=== PATIENT | female | born 1955 | race Caucasian/White ===

== ENCOUNTER 2021-11-13 13:45 | Outpatient (CLI) | payer MEDICARE, BC, SELFPAY ==
--- NOTE | ~2021-11-13 | XR_ITS ---
XR lumbar spine 2-3V DATE: 11/13/2021 14:10 INDICATION: Low back pain for 6 months. No injury. TECHNIQUE: AP, lateral, coned lateral lumbosacral views COMPARISON: None FINDINGS: Osteopenia. No scoliosis of the lumbar spine. Normal alignment of the lumbar spine with the exception of mild anterolisthesis at L2 L3-4 and L4-5 due to prominent degenerative change noted at the mid and lower lumbar and lumbosacral area. Moderate degenerative disc disease is noted at L1-2, L2-3, L3-4. Mild degenerative disc disease at L4 -5. L5-S1 interspace is well preserved. No fracture or bone destruction is detected. Included lower thoracic and lumbar pedicles are intact. The sacroiliac joints are unremarkable. IMPRESSION: Degenerative change at the mid and lower lumbar and lumbosacral apophyseal joints with as sociated grade 1 anterolisthesis at L3-4 and L4-5 Moderate degenerative disc disease at L1-2, L2-3, L3-4 and mild degenerative disc disease at L4-5 Osteopenia Status post cholecystectomy Reviewed, dictated and finalized at location A. IMPRESSION: Degenerative change at the mid and lower lumbar and lumbosacral apo physeal joints with associated grade 1 anterolisthesis at L3-4 and L4-5 Moderate degenerative disc disease at L1-2, L2-3, L3-4 and mild degenerative di sc disease at L4-5 Osteopenia Status post cholecystectomy
== END 2021-11-13 13:46 | disposition home or self-care (01) ==
PROVIDERS: PCP Family Medicine; Visit Provider Family Medicine
DX: M51.36 Other intervertebral disc degeneration, lumbar region (principal); Z90.49 Acquired absence of other specified parts of digestive tract; M85.88 Other specified disorders of bone density and structure, other site
CPT/HCPCS: 72100

== ENCOUNTER 2022-03-25 09:00 | Outpatient (RCR) | payer MEDICARE, BC, SELFPAY ==
--- NOTE | 2022-02-03 16:51 | PTOPEVAL1 ---
Assessment and note entered by Leslie Herrera, PT Evaluation Information Assessment Status Evaluation Diagnosis Back Pain, radiculopathy Onset 05/2021 Subjective Information Back hurts sometimes with pain in LEFT buttock and down the back of the left leg down to calf. Sometimes RIGHT buttock and down to knee Reported Pain Level Pain Score 0,2: Self Report Assessment PT Clinical Summary Pt presents w/ c/o pain in back, buttocks, and BLE L>R at times. Reports she had been seeing chiropractic consistently until January and began to have pain return thus ceased day care provider and presented to MD. Physical therapy evaluation shows sacral torsion, corresponding mm tone in left piriformis, decreased hamstring, quad , and piriformis length, decreased lumbopelvic stability, poor core strength and stability especially in the transverse abdominal musculature . Pt would thus benefit from therapy to address lumbopelvic alignment and stability, muscle tonicity, tissue extensibility and flexibility, and strength/stabilization in order to reduce pain and return to prior level of function without pain. Plan of Care Interventions Electrical Stimulation,Hot Pack/Cold Pack,Manual Therapy,Therapeutic Activities,Therapeutic Exercise,Self-Care/Home Management,Ultrasound PT Services Indicated Yes Treatment Frequency and 2x weekly x 4 weeks Duration These treatments will address the objective and functional deficits as defined above. The patient will be advanced safely and appropriately in order for the patient to progress towards his/her prior level of function. Additional exercises will be introduced and as well as a comprehensive home exercise program upon discharge, if needed, ?to ensure carryover of functional gains achieved in the clinic. This treatment plan has been reviewed and agreement upon by the patient.
--- NOTE | 2022-03-03 11:54 | PTOPPROG ---
Assessment and note entered by Lisa Landers, PT Evaluation Information Assessment Status progress report Diagnosis Back Pain, radiculopathy Onset 05/2021 Subjective Information Radha reports: back is better, 0-4/10 range;R leg not hurting anymore and L calf sore; doing the exercises at home, just an exercise ball for home use; walk 10-15 min & stand 15 min- pain increase Assessment PT Clinical Summary Radha has received 6 PT sessions. Compared to the initial evaluation: pain has decreased at worst rating from 10 to 4/10; No longer has R LE pain and L radicular pain is less; continues to have increase back pain with valsalva during bowel movements; increased strength and flexibility of hips and trunk; in supine, does not have any increase in pain with R and L hip motions or hamstring stretching; She reports walking and standing tolerances are decreased due to pain. She has been educated on a home exercise program, posture/body positioning and techniques to help manage her pain. The goals were partially achieved. Continue PT treatment to further increase her flexibility and strength, with progression of her home exercises. Plan of Care Interventions Hot Pack/Cold Pack,Manual Therapy,Mechanical Traction,Patient/Caregiver Education,Therapeutic Activities,Therapeutic Exercise,Ultrasound PT Services Indicated Yes Treatment Frequency and 2x/wk for 3 weeks Duration These treatments will address the objective and functional deficits as defined above. The patient will be advanced safely and appropriately in order for the patient to progress towards his/her prior level of function. Additional exercises will be introduced and as well as a comprehensive home exercise program upon discharge, if needed, ?to ensure carryover of functional gains achieved in the clinic. This treatment plan has been reviewed and agreement upon by the patient.
--- NOTE | 2022-03-25 09:50 | PTOPDC ---
Assessment and note entered by Lisa Landers, PT Evaluation Information Assessment Status Discharge Diagnosis Back Pain, radiculopathy Onset 05/2021 Subjective Information Radha reports: was feeling a little better and did more yesterday around the house--laundry, cleaning, changing bed; back is OK today, hamstring is sore; is doing her exercises at home and stretching every day; has an exercise ball; ready for discharge from PT; PAIN: range of 0-4/10; increase with more activity; sit 30-60 min and then go to stand up, but loosens in 5 min of being up and walking; standing/walking tolerance of 30 min; decrease pain with sit/rest, tylenol ~ 2x/day; using ice and home stim unit; Reported Pain Level Pain Score Self Report, 0-4/10 range L hamstring Assessment PT Clinical Summary Radha has received 10 PT sessions: Compared to the last reevaluation: pain rating is the same at 0-4/10 with reported increased activity, walking and standing tolerances, with decreased use of tylenol from 6 to 2 per day; increased trunk and hip strength; increased flexibility of B hamstring and quad muscle length; She is independent with her home exercise program. The goals were partially achieved. Discharge PT services; Plan of Care PT Services Indicated No
== END 2022-03-27 07:35 | disposition home or self-care (01) ==
LOC: ANHPT 09:00
PROVIDERS: PCP Family Medicine; Visit Provider Family Medicine
DX: M54.16 Radiculopathy, lumbar region (principal)
CPT/HCPCS: 97014; 97110; 97112; 97140; 97161; 97530; G0283

== ENCOUNTER 2022-04-15 07:46 | Outpatient (CLI) | payer MEDICARE, BC, SELFPAY ==
--- NOTE | ~2022-04-15 | MR_ITS ---
MRI of the lumbar spine Clinical History: Radiculopathy Technique: Axial T2-weighted images, and sagittal T1-weighted, T2-weighted, T2 fat sat, and STIR imag es were acquired. Findings: There is no fracture or subluxation of the lumbar spine. Vertebral bodies maintain normal h eight and alignment. No focal bone marrow signal abnormality identified. At L1-L2, there is no disc bulge herniation. There is minimal facet joint arthropathy. No spinal rosaura l stenosis or neural foraminal narrowing. At L2-L3, there is no disc bulge or herniation. There is mild facet arthropathy. No spinal canal sten osis or neural foraminal narrowing. At L3-L4, there is minimal bulge in the foraminal regions, with moderate to severe facet arthropathy. There is resultant severe thecal sac compression focally. Bilateral neural foramina are preserved. At L4-L5, disc bulge and facet arthropathy contribute to severe thecal sac compression focally. Bilat eral neural foramina are preserved. At L5-S1, there is no disc bulge or herniation. There is facet joint arthropathy. No spinal canal kyle nosis or neural foraminal narrowing. Paravertebral soft tissues are unremarkable. Impression: Severe thecal sac compression at the L3-L4 and L4-L5 levels, largely related to facet joint arthropat hy as well as superimposed disc bulges. Reviewed, dictated and finalized at location [] OPERATOR Impression: Severe thecal sac compression at the L3-L4 and L4-L5 levels, largely related to facet joint arthropathy as well as superimposed disc bulges.
== END 2022-04-15 07:47 | disposition home or self-care (01) ==
PROVIDERS: PCP Physician Assistant Medical; Visit Provider Physician Assistant Medical
DX: M54.16 Radiculopathy, lumbar region (principal)
CPT/HCPCS: 72148

== ENCOUNTER 2022-07-30 08:29 | Outpatient (CLI) | payer MEDICARE, BC, SELFPAY ==
--- NOTE | 2022-07-30 09:19 | ECG_ITS ---
Measurements Intervals [place] Rate: 82 P: 5 IL: 159 QRS: 3 QRSD: 86 T: 51 QT: 344 QTc: 403 Interpretive Statements SINUS RHYTHM MINIMAL Q WAVES- INFERIOR LEADS BORDERLINE ECG NO PREVIOUS ECG AVAILABLE FOR COMPARISON Electronically Signed On 07-30-2022 9:47:13 CDT by Hany Angulo D.O.
[2022-07-30 09:41] LABS: Basophils Absolute Auto 0.1 K/mm3 (0.0-0.1); Basophils Percent Auto 0.8 % (0.2-1.2); Eosinophils Absolute Auto 0.4 K/mm3 (0-0.3); Eosinophils Percent Auto 3.8 % (0-4.4); Hematocrit 46.2 % (37.0-47.0); Hemoglobin 14.9 g/dL (12.0-15.0); Immature Granulocyte Absolute 0.04 K/mm3 (0.00-0.031); Immature Granulocyte Percent A 0.4 % (0-0.5); Lymphocytes Absolute Auto 2.33 K/mm3 (0.9-3.2); Mean Corpuscular HGB Conc 32.3 g/dl (32-36); Mean Corpuscular Hemoglobin 29.7 pg (26-34); Mean Platelet Volume 10.9 fl (7.4-10.4); Monocytes Absolute Auto 0.9 K/mm3 (0.1-0.6); Monocytes Percent Auto 8.9 % (2.6-8.5); Neutrophils Absolute Auto 6.8 K/mm3 (1.3-6.7); Neutrophils Percent Auto 64.1 % (45.5-73.1); Platelet Count Result 269 k/mm3 (150-375); Red Blood Count 5.02 M/mm3 (4.2-5.4); Red Cell Distribution Width 12.7 % (11.5-14.5); White Blood Count 10.6 K/mm3 (4.5-10.0)
[2022-07-30 09:46] LABS: Anion Gap 6 mmol/L (8-16); Blood Urea Nitrogen 17 mg/dL (7-17); Calcium 9.5 mg/dL (8.4-10.2); Carbon Dioxide 33 mmol/L (22-30); Chloride 101 mmol/L (98-107); Estimated Glomerular Filt Rate > 60; Glucose 97 mg/dL (65-110); Potassium 3.9 mmol/L (3.4-5.0); Sodium 140 mmol/L (137-145)
[2022-07-30 10:42] LABS: Appearance Urine Cloudy (Clear); Bacteria Urine None Seen /hpf; Bilirubin Urine Negative (Negative); Blood Urine Trace (Negative); Color Urine Yellow (Yellow); Glucose Urine UA Negative (Negative); Ketones Urine Negative (Negative); Leukocyte Esterase Ur 2+ LEU/UL (Negative); Need Manual Microscopic Reviewed; Nitrate Urine Negative (Negative); Non Pathogenic Casts 0-2; Protein Urine Negative (Negative); RBC Urine 51-100 /hpf (0-2); Squamous Epithelial Cell Urine None seen /hpf (Few); Urobilinogen Urine 0.2 mg/dL (<2.0); WBC Urine 21-50 /hpf; pH Urine 5.5 (5.0-9.0)
[2022-07-30 11:50] LABS: Add Urine Microscopic? YES
== END 2022-07-30 08:30 | disposition home or self-care (01) ==
PROVIDERS: PCP Nurse Practitioner Family; Visit Provider Neurological Surgery
DX: M48.062 Spinal stenosis, lumbar region with neurogenic claudication (principal); Z01.818 Encounter for other preprocedural examination; M47.26 Other spondylosis with radiculopathy, lumbar region
CPT/HCPCS: 36415; 80048; 81001; 85025; 86850; 86900; 86901; 87086; 93005

== ENCOUNTER 2022-08-10 13:21 | Outpatient (CLI) | payer MEDICARE, BC, SELFPAY ==
[2022-08-10 14:12] LABS: White Blood Count 11.6 K/mm3 (4.5-10.0)
[2022-08-10 14:25] LABS: Partial Thromboplastin Time 29.6 SECONDS (22.3-36.8)
== END 2022-08-10 13:22 | disposition home or self-care (01) ==
LOC: ANHSURGERY 13:28
PROVIDERS: PCP Physician Assistant Medical; Visit Provider Neurological Surgery
DX: M48.062 Spinal stenosis, lumbar region with neurogenic claudication (principal)
CPT/HCPCS: 36415; 85048; 85610; 85730; 86850; 86900; 86901

== ENCOUNTER 2022-08-13 00:28 | Day surgery (SDC) | payer MEDICARE, BC, SELFPAY ==
--- NOTE | 2022-08-07 13:52 | PC.NURSE ---
Report to the Outpatient Waiting Room, entrance under the green pavilion located off [facility], at time __0600 on date _08/13/22 . Planned Procedure Time: __0730 . Time changes happen often and if your time is changed the preop area will call you the afternoon before. - You and your visitor will be asked to self-screen and do not enter if you have any COVID symptoms. - A mask is optional within the hospital at this time. Patients may have clear liquids (water, carbonated beverages, clear teas, apple juice) until 3 hours prior to surgery with a maximum of 20 ounces. - No food from midnight until time of surgery - Infants may have breast milk until 4 hours before surgery, infant formula 6 hours prior to surgery. - Children will be allowed to drink immediately following surgery. If applicable, please bring a bottle or sippy cup to assist with drinking. Juice, water, soda, and popsicles are readily available. For infants on formula, please bring formula the day of surgery. Pacifiers are allowed. Take the following medications with a SIP of water the morning of surgery: ___AMLODIPINE,INHALER DO NOT STOP ANY OF YOUR OTHER PRESCRIPTION MEDICATIONS PRIOR TO SURGERY ?EXCEPT THE FOLLOWING Medications to discontinue per physician ____ALL VITAMINS/SUPPLEMENTS 3 DAYS PRE OP .LAST DOSE 08/09/22 Please no make-up, nail urdu, hairspray, perfume, deodorant, or body powder the day of surgery. No jewelry (including any body piercings) or valuables the day of surgery, leave them at home. Please take a shower or bath the night before, or the morning of, surgery with an antibacterial soap. Wear comfortable, loose fitting clothing. Children are encouraged to wear pajamas. - Jewelry must be removed prior to entering the operating room. Rings and piercings that are not removed may be cut off. - The hospital will not accept responsibility for valuables. - Please leave all valuables, including medications, at home the day of surgery. If you are going home after surgery, a licensed m48/m60 tank driver must drive you home. - NO public transportation without another adult if you receive anesthesia. - We recommend that an adult stay with you for 24 hours following discharge. - We also recommend that you do not drive, make important decision, drink alcoholic beverages, or take any drugs that were not prescribed by your health care provider for at least 24 hours after your discharge time. For Pediatric surgeries, we recommend two adults accompany the child home. Follow any additional instructions given to you from your surgeon. If you or anyone in your household have experienced Covid symptoms in the past week, please notify your surgeon or the nurse liaison at the phone number below for possible testing. Telephone instructions given to ___PATIENT and asked if any additional questions and then verbalized understanding. Patient advised to call surgeon office or pre surgery nurse liaison [phone] if any additional questions.
[2022-08-07 14:04] VITALS: BMI 42.3
[2022-08-13] VITALS (9 sets, daily range): BP systolic 126–152; BP diastolic 55–94; PULSE 71–88; RESP 10–16; TEMP 36.6–37.1; O2SAT 92–100
--- NOTE | ~2022-08-13 | XR_ITS ---
EXAMINATION: XR fluoroscopy no charge DATE: 08/13/2022 13:40 INDICATION: Lumbar spondylosis. TECHNIQUE: A single lateral intraoperative fluoroscopic view of the lumbar spine was obtained. I was not present. Fluoroscopy exposure time was 3 seconds. COMPARISON: None. FINDINGS: There is an instrument overlying the posterior elements at L3-L4. IMPRESSION: 1. Instrument overlying the posterior elements at L3-L4. Reviewed, dictated and finalized at location A.
[2022-08-13] MEDS: LACTATED RINGERS 1,000 ML 30 ML IV CONT ×2 (06:30→09:45)
--- NOTE | 2022-08-13 06:48 | WPDANESEPPF ---
Anes - Initial Pre Proc Eval Procedure: Operation Date: 08/13/22 07:30 Proposed Procedures p Left Hemilaminectomy L3-4, L4-5 - Jag Canseco MD Date/Time: 08/13/22 06:48 Surgeon: Jag Canseco MD Pre Op Diagnosis: L3-4,L4-5 stenosis Patient Data Age: 66 Gender: F Height: 1.68 m Weight: 120.8 kg Allergies Allergy/AdvReac Type Severity Reaction Status Date / Time hydrochlorothiazide AdvReac Intermediate body aches Verified 08/07/22 13:35 Home Medications Medication Instructions Recorded Confirmed Type ascorbic acid (vitamin C) 500 mg 500 mg PO DAILY 05/02/19 08/07/22 History capsule calcium carbonate 600 mg-vitamin 1 tablet PO DAILY 05/02/19 08/07/22 History D3 5 mcg (200 unit) tablet (Calcium 600 + D(3)) cholecalciferol (vitamin D3) 50 2,000 unit PO DAILY 05/02/19 08/07/22 History mcg (2,000 unit) tablet flaxseed oil 1,000 mg capsule 1,000 mg PO DAILY 05/02/19 08/07/22 History zinc 50 mg tablet (Chelated Zinc) 30 mg PO DAILY 05/02/19 08/07/22 History valacyclovir 1 gram tablet 2,000 mg PO Q12H PRN fever blister 02/14/20 08/07/22 Rx (Valtrex) #30 tabs naproxen sodium 220 mg tablet See Rx Instructions PO BID PRN Pain 04/01/22 08/07/22 History (Aleve) fluticasone 250 mcg-salmeterol 50 See Rx Instructions .Route 04/20/22 08/07/22 Rx mcg/dose blistr powdr for .COMPLEX #180 grams inhalation (Wixela Inhub) amlodipine 5 mg tablet See Rx Instructions .Route 06/25/22 08/07/22 Rx .COMPLEX #90 tabs semaglutide 0.25 mg or 0.5 mg (2 0.25 mg (0.4 mL) subcut WEEKLY #3 06/25/22 08/07/22 Rx mg/3 mL) subcutaneous pen injector mL (Ozempic) telmisartan 80 mg tablet 80 mg PO DAILY #90 tabs 06/25/22 08/07/22 Rx metformin 500 mg tablet See Rx Instructions PO .COMPLEX 07/17/22 08/07/22 Rx #360 tabs Patient hx anesthesia problems: none Family hx anesthesia problems: none Results Review: All pre-operative results and documents have been reviewed as part of the pre-operative evaluation. [facility] Past Medical History Medical History DJD of left shoulder Essential hypertension Obesity Pain, joint, shoulder, left Postmenopausal Thumb tendonitis Type 2 diabetes mellitus without complication, without long-term current use of insulin Surgical History Surgical History H/O breast biopsy History of cholecystectomy Family History Family History (Updated 07/17/22 @ 14:09 by Ama Caicedo PA-C) Father Hypertension Mother Hypertension Sibling Endometrial cancer Other Family history of arthritis Family history of malignant neoplasm Social History Social History Smoking packs per day: 0.5 Smoking cigarettes per day: 10.0 Years smoked: 10 Smoking pack-years: 5.00 Smoking status: Former smoker Tobacco type: cigarettes Second hand tobacco smoke exposure: Yes Smoking end date: 05/03/84 Alcohol intake: never Substance use: never Substance use type: does not use Lack of Transportation: No Lack of Food: Never True Current Housing: I Have Housing Concerned About Future Housing: No Difficulty Paying Gas/Electric Bills: No Difficulty Paying for Meds: No Currently Unemployed: No Difficulty w/ Childcare or Family Care: No Living arrangements: with family Occupation/Education: retired Gender identity (if verbalized by the patient): Female Spiritual care concerns: No Agree to blood products: Yes Anes - Eval Final PreProcedure Day of Procedure 08/13/22 06:48 Patient weight: morbidly obese Heart: regular rate and rhythm Lungs: clear to auscultation Airway: Mallampati scale class II Neurological: alert and oriented Last oral intake: >/= 8 hours ASA classification: III Emergent: no Anesthetic plan: proceed Anesthesia type and monitoring: general ETT and
[2022-08-13 06:51] LABS: Glucose Point of Care 106 mg/dl (65-105)
--- NOTE | 2022-08-13 07:39 | PM.IMHP ---
H&P: HPI History of Present Illness Date/Time: 08/13/22 07:39 Chief Complaint: Back and leg pain, claudication Narrative: Alicia is a 66-year-old female with back and leg pain related stenosis at L3-5 presents for left-sided L3-5 hemilaminectomy. She has not changed appreciably since we last saw her. She is not having specific muscle group weakness or dermatomal numbness. She is not having bowel or bladder difficulty. Review of Systems Review of Systems: Patient denies shortness of breath, cough, fever, chills, nausea, vomiting, weight loss, weight gain, chest pain, dysuria. She has back and leg pain as above. Her review of systems is otherwise negative on 12 systems except as noted elsewhere. [facility] Past Medical History Medical History DJD of left shoulder Essential hypertension Obesity Pain, joint, shoulder, left Postmenopausal Thumb tendonitis Type 2 diabetes mellitus without complication, without long-term current use of insulin Surgical History Surgical History H/O breast biopsy History of cholecystectomy Family History Family History (Updated 07/17/22 @ 14:09 by Ama Caicedo PA-C) Father Hypertension Mother Hypertension Sibling Endometrial cancer Other Family history of arthritis Family history of malignant neoplasm Social History Social History Smoking packs per day: 0.5 Smoking cigarettes per day: 10.0 Years smoked: 10 Smoking pack-years: 5.00 Smoking status: Former smoker Tobacco type: cigarettes Second hand tobacco smoke exposure: Yes Smoking end date: 05/03/84 Alcohol intake: never Substance use: never Substance use type: does not use Lack of Transportation: No Lack of Food: Never True Current Housing: I Have Housing Concerned About Future Housing: No Difficulty Paying Gas/Electric Bills: No Difficulty Paying for Meds: No Currently Unemployed: No Difficulty w/ Childcare or Family Care: No Living arrangements: with family Occupation/Education: retired Gender identity (if verbalized by the patient): Female Spiritual care concerns: No Agree to blood products: Yes Meds Home Medications and Allergies Home Medications Medication Instructions Recorded Confirmed Type ascorbic acid (vitamin C) 500 mg 500 mg PO DAILY 05/02/19 08/07/22 History capsule calcium carbonate 600 mg-vitamin 1 tablet PO DAILY 05/02/19 08/07/22 History D3 5 mcg (200 unit) tablet (Calcium 600 + D(3)) cholecalciferol (vitamin D3) 50 2,000 unit PO DAILY 05/02/19 08/07/22 History mcg (2,000 unit) tablet flaxseed oil 1,000 mg capsule 1,000 mg PO DAILY 05/02/19 08/07/22 History zinc 50 mg tablet (Chelated Zinc) 30 mg PO DAILY 05/02/19 08/07/22 History valacyclovir 1 gram tablet 2,000 mg PO Q12H PRN fever blister 02/14/20 08/07/22 Rx (Valtrex) #30 tabs naproxen sodium 220 mg tablet See Rx Instructions PO BID PRN Pain 04/01/22 08/07/22 History (Aleve) fluticasone 250 mcg-salmeterol 50 See Rx Instructions .Route 04/20/22 08/07/22 Rx mcg/dose blistr powdr for .COMPLEX #180 grams inhalation (Wixela Inhub) amlodipine 5 mg tablet See Rx Instructions .Route 06/25/22 08/07/22 Rx .COMPLEX #90 tabs semaglutide 0.25 mg or 0.5 mg (2 0.25 mg (0.4 mL) subcut WEEKLY #3 06/25/22 08/07/22 Rx mg/3 mL) subcutaneous pen injector mL (Ozempic) telmisartan 80 mg tablet 80 mg PO DAILY #90 tabs 06/25/22 08/07/22 Rx metformin 500 mg tablet See Rx Instructions PO .COMPLEX 07/17/22 08/07/22 Rx #360 tabs Allergies Allergy/AdvReac Type Severity Reaction Status Date / Time hydrochlorothiazide AdvReac Intermediate body aches Verified 08/07/22 13:35 Exam Narrative: Strength is 5/5 in all muscle groups of the bilateral lower extremities. Sensation is intact to light touch throu
--- NOTE | 2022-08-13 07:41 | WPDHPUPDATE1 ---
History and Physical Update Update Date/Time: 08/13/22 07:41 History and Physical has been reviewed, including an updated exam of the patient. There are NO changes in the patient's condition. Risks, benefits, and alternatives have been discussed and questions answered. Patient agrees to proceed with procedure.
[2022-08-13] MEDS: ceFAZolin 3 GM/D5W 100 ML 100 ML IVPB (07:52)
[2022-08-13] MEDS: LIDO 1%/EPINEPHRINE 1:100,000 50 ML VIAL INFILTRATE (08:36)
--- NOTE | 2022-08-13 09:29 | W.PM.PROC2 ---
Procedure Note - Detailed Date of Procedure 08/13/22 Pre-op Diagnosis L3-4,L4-5 stenosis Post-op Diagnosis Same Procedure Performed Left L3-4 and L4-5 hemilaminectomy Surgeon Jag Canseco MD Staff Electronic Warfare Officer Caroline Anesthesia General Description of Procedure The patient was brought to the operating room in the supine position, was sedated, intubated and placed under general anesthesia in routine fashion. She was then turned into the prone position on a Kishore frame. The area of operation on her back was examined, marked for incision, prepped and draped in routine sterile fashion. Incision was marked over the L3 through L5 spinous processes in the midline. This area was injected with 0.5% lidocaine with [id number] epinephrine. Intravenous antibiotics given prior to incision. Incision was made with a 10 blade scalpel down to the lumbodorsal fascia. A subperiosteal dissection of the muscle and soft tissue within spinous process and lamina at L3-5 on the left was performed with a subperiosteal elevator and Bovie cautery. A verifying x-rays obtained to verify the level of operation. At the L3-5 levels a Midas [place] drill was used to perform a hemilaminectomy and medial facetectomy. Under microscopy the yellow ligament was lifted in the midline removed piecemeal using Kerrison punches. Curved curette was used to define a plane with the dura and scraped free and remove overgrown bone and ligament in the lateral recess 1st episode laterally and then contralaterally. Kerrison punches were used to remove this material. This was done until a Lockhart instrument could be placed in the lateral recess to confirm microdecompression bilaterally. The wound was then copiously irrigated with bacitracin irrigation all bleeding stopped with bipolar and Bovie cautery and Gelfoam thrombin powder. The wound was then closed in layered fashion with 2-0 Vicryl interrupted sutures in the lumbodorsal fascia and Juanita's layer. 3-0 Vicryl buried interrupted sutures were placed in the dermis and skin was closed with a running 4-0 Monocryl subcuticular stitch and dressed with Dermabond and a Telfa and Tegaderm dressing. The patient was allowed to wake up in the operating room and was taken to the recovery room in stable condition. There were no immediate complications of this operation. All counts were reported correct at the end of the case. Blood loss was 50 cc. The patient was neurologically at her baseline postoperatively. CPT codes: 02624, 85430, 66676 Estimated Blood Loss 50 IV Fluids 1,000 Complications None Condition Stable Disposition PACU [facility] Billing Surgery - Charge Forward: Surgery Billing
[2022-08-13 09:58] LABS: Glucose Point of Care 127 mg/dl (65-105)
[2022-08-13] MEDS: fentaNYL CITRATE INJ (*CRX) 100 MCG/2 ML VIAL 25 MCG IV PUSH ×2 (10:05→10:10)
[2022-08-13] MEDS: oxyCODONE HCL (*CRX) 5 MG TAB IR PO (11:24)
== END 2022-08-13 12:15 | disposition home or self-care (01) ==
PROVIDERS: PCP Physician Assistant Medical; Visit Provider Neurological Surgery
PROC: (CPT 63030; principal; 2022-08-13 07:30)
DX: M48.062 Spinal stenosis, lumbar region with neurogenic claudication (principal); M47.816 Spondylosis without myelopathy or radiculopathy, lumbar region; I10 Essential (primary) hypertension; E11.9 Type 2 diabetes mellitus without complications; Z87.891 Personal history of nicotine dependence; Z79.899 Other long term (current) drug therapy; Z79.84 Long term (current) use of oral hypoglycemic drugs; Z79.51 Long term (current) use of inhaled steroids; E66.01 Morbid (severe) obesity due to excess calories; Z68.41 Body mass index [BMI] 40.0-44.9, adult
CPT/HCPCS: 63047; 63048; 82948; 99199; A9270; J0330; J0690; J1100; J1170; J2250; J2405; J2704; J3010; J7120

== ENCOUNTER 2022-09-21 09:46 | Outpatient (CLI) | payer MEDICARE, BC, SELFPAY ==
--- NOTE | ~2022-09-21 | XR_ITS ---
EXAMINATION: XR lumbar spine 2-3V DATE: 09/21/2022 10:02 INDICATION: 6 weeks status post hemilaminectomy. TECHNIQUE: 3 views of lumbar spine were obtained. COMPARISON: Lumbar spine radiographs 11/13/2021, MRI 04/15/2022 FINDINGS: There is 3 mm anterolisthesis of L3 on L4. There is 7 mm anterolisthesis of L4 on L5 with w orsening from 04/15/2022. Vertebral body heights are normal. There is mildly decreased disc height at L4-L5. There are endplate osteophytes at most levels. There is multilevel severe facet joint osteoar thritis. Surgical clips in the right upper quadrant are likely from cholecystectomy. IMPRESSION: 1. Mild lumbar spondylosis with worsened anterolisthesis of L4 on L5. Reviewed, dictated and finalized at location A.
== END 2022-09-21 09:47 | disposition home or self-care (01) ==
PROVIDERS: PCP Physician Assistant Medical; Visit Provider Neurological Surgery
DX: Z98.890 Other specified postprocedural states (principal); M47.896 Other spondylosis, lumbar region
CPT/HCPCS: 72100

== ENCOUNTER 2023-02-02 08:40 | Outpatient (CLI) | payer MEDICARE, BC, SELFPAY ==
--- NOTE | ~2023-02-02 | XR_ITS ---
EXAMINATION: XR abdomen/kub 1V DATE: 02/02/2023 08:57 INDICATION: Gross hematuria. TECHNIQUE: A supine view of the abdomen on 2 radiographs was obtained. COMPARISON: CT abdomen and pelvis 02/02/2023 FINDINGS: There are no dilated loops of bowel. There is a phlebolith in left pelvis. Surgical clips i n the right upper quadrant are likely from cholecystectomy. IMPRESSION: 1. No urolithiasis. Reviewed, dictated and finalized at location E. IMPRESSION: 1. No urolithiasis.
--- NOTE | ~2023-02-02 | CT_ITS ---
EXAMINATION: CT abdomen pelvis wo/w con DATE: 02/02/2023 09:38 INDICATION: Gross hematuria. TECHNIQUE: Computed tomography (CT) of the abdomen and pelvis was performed without and with intraven ous contrast using a total of 130 mL Omnipaque-350 intravenous contrast with a double-bolus technique for simultaneous opacification of the renal parenchyma and renal collecting system. Automated exposu re control and iterative reconstruction technique were employed. The dose-length product was 2873.11 mGy-cm. COMPARISON: None FINDINGS: The visualized portions of the lung bases demonstrate minimal atelectasis. No pleural effusion. The h eart size is normal. No pericardial effusion. There is diffuse hepatic steatosis. There are changes o f cholecystectomy. The spleen, pancreas, adrenal glands, and right kidney are normal. There is a 9 mm cyst in left kidney. There is no urolithiasis. There are areas are well opacified and are normal. Th ere is a 12 mm mass in the bladder on the left posteriorly. There are no dilated loops of bowel. The appendix is normal. There are no pathologically enlarged lymph nodes. There is no free intraperitonea l fluid. There is mild thoracic and lumbar spondylosis. IMPRESSION: 1. 12 mm bladder mass, which may be hematoma or urothelial carcinoma. Reviewed, dictated and finalized at location E.
[2023-02-02 09:25] LABS: Estimated Glomerular Filt Rate > 60
== END 2023-02-02 08:41 | disposition home or self-care (01) ==
LOC: ANHIMG 08:42
PROVIDERS: PCP Nurse Practitioner Family; Visit Provider Urology
DX: R31.0 Gross hematuria (principal)
CPT/HCPCS: 74018; 74178; Q9967

== ENCOUNTER 2023-02-24 13:45 | Outpatient (RCR) | payer MEDICARE, BC, SELFPAY ==
--- NOTE | 2023-01-27 08:53 | OPREHPOC ---
Outpatient Therapy Plan of Care This is a Multidisciplinary Plan of Care that may contain components documented by all disciplines (PT, OT, and ST.) PT Problem 1 PT Problem #1 Knowledge Deficit PT Goal 1 Goal 1* indep with HEP 2* demonstrate correct body mechanics and positioning with exercises PT Problem 2 PT Problem #2 Pain PT Goal 1 Goal 1* pt report pain at worst of 4/10 2* pt report with sleeping, awaken 1x/night due to back-hip pain 3* Oswestry self assessment functional score of 6% limitation in activity level PT Problem 3 PT Problem #3 Impaired Range of Motion PT Goal 1 Goal improve flexibility of hip and hamstring with SLR stretch 1* R 60' 2* L 55; PT Problem 4 PT Problem #4 Impaired Strength PT Goal 1 Goal improve strength of trunk and hips, for stability to spine 1* supine & side lying mat exercises x 20 reps R and L LE 2* single leg standing R 10 sec 3* single leg standing L 10 sec
--- NOTE | 2023-01-27 08:53 | PTOPEVAL1 ---
Assessment and note entered by Lisa Landers, PT Evaluation Information Assessment Status Evaluation Diagnosis lumbar radiculopathy Onset October 2022 Subjective Information had back surgery August 13 and was pain free- Dr Martinez and has been released from him in August, not seen since then; then had gradual increase in pain L hip and thigh, no trauma or injury; ACTIVITY: retired; inactive lifestyle; at home- treadmill, [employer]- do not use them; Reported Pain Level Pain Score Self Report Additional Pain Score Comments pain range in the past week 0--8/10; L hip and posterior thigh; tight in hip, stabbing sometimes in back of thigh increase pain: when wake up in AM, wake up from sleeping when change position- awaken 2x/night; standing/walking tolerance with home tassks 15-20 min; decrease pain: sit/rest, no pain meds; has roller at home and use over hamstrings is not using heat or ice- instruct on PRN use; hot shower does not make any difference Assessment PT Clinical Summary Radha has the diagnosis of lumbar radiculopathy. Her history includes back surgery 5 months ago, and was pain free after surgery, and bilateral hip arthritis on x rays. She is retired and not very active, does not do any regular fitness activity. Due to her pain, walking, standing and sleeping tolerances are decreased. With the evaluation, her pain and tightness is over L hamstring muscle; tightness of bilateral hamstrings, with weakness over trunk and hips; pain is increased in back and hamstring with trunk extension--supine bridge, prone hip extension. Skilled PT services are indicated for modalities to decrease pain and spasms, therapeutic exercises to increase strength and flexibility, with education to progress HEP and position. Plan of Care Interventions Electrical Stimulation,Hot Pack/Cold Pack,Manual Therapy,Neuro Re-education,Patient Education,Therapeutic Activities,Therapeutic Exercise,Ultrasound,Other Other Interventions dry needling, IASTM, taping PT Services Indicated Yes Treatment Frequency and 2x/wk for 4
--- NOTE | 2023-02-24 14:20 | PTOPDC ---
Assessment and note entered by Lisa Landers, PT Evaluation Information Assessment Status Discharge Diagnosis lumbar radiclopathy Onset October 2022 Subjective Information is doing better, pleased with how much she has improved; dry needling really helped; is doing the exercises at home; is doing everything at home, no problems; Reported Pain Level Pain Score Self Report Additional Pain Score Comments pain range in the past week: 0-8/10 : L lateral hamstring increase pain: first awaken in AM for 15-20 min, move around and better decrease pain: move around, is not taking any pain meds; not using heat or ice--re instruct use PRN; pain does not awaken her from sleeping; walking and standing is not limited due to LBP or hip pain, but SOB Assessment PT Clinical Summary Radha has received 8 PT sessions. Compared to the initial evaluation: pain rating is the same at 0-8/10, but does not stay at 8/10 as long, once she gets up and moves around pain eases; Self assessment improved from 10% to 0% limitation in activity level; sleeping without awakening due to pain; increase flexibility of R and L hamstring; increase strength of R and L hip and trunk; education completed for HEP and posture/positioning of back and hips. The goals were partially achieved. Discharge PT and she is to continue with her HEP. Plan of Care PT Services Indicated No
--- NOTE | 2023-02-24 14:21 | PTOPDC ---
Assessment and note entered by Lisa Landers, PT Evaluation Information Assessment Status Discharge Diagnosis lumbar radiclopathy Onset October 2022 Subjective Information is doing better, pleased with how much she has improved; dry needling really helped; is doing the exercises at home; is doing everything at home, no problems; Reported Pain Level Pain Score 0: Self Report Additional Pain Score Comments pain range in the past weeK: 0-8/10 : L lateral hamstring increase pain: first awaken in AM for 15-20 min, move around and better decrease pain: move around, is not taking any pain meds; not using heat or ice--reinstruct use PRN; pain does not awaken her from sleeping; walking and standing is not limited due to LBP or hip pain, but SOB Assessment PT Clinical Summary Radha has received 8 PT sessions. Compared to the initial evaluation: pain rating is the same at 0-8/10, but does not stay at 8/10 as long, once she gets up and moves around pain eases; Self assessment improved from 10% to 0% limitation in activity level; sleeping without awakening due to pain; increase flexibility of R and L hamstring; increase strength of R and L hip and trunk; education completed for HEP and posture/positioning of back and hips. The goals were partially achieved. Discharge PT and she is to continue with her HEP. Plan of Care PT Services Indicated No
== END 2023-02-24 14:45 | disposition home or self-care (01) ==
LOC: ANHPT 13:45
PROVIDERS: PCP Nurse Practitioner Family; Visit Provider Nurse Practitioner Family
DX: M54.16 Radiculopathy, lumbar region (principal)
CPT/HCPCS: 97110; 97140; 97161; 97530

== ENCOUNTER 2023-03-10 08:50 | Outpatient (CLI) | payer MEDICARE, BC, SELFPAY ==
[2023-03-10 09:42] LABS: Basophils Absolute Auto 0.1 K/mm3 (0.0-0.1); Basophils Percent Auto 0.7 % (0.2-1.2); Eosinophils Absolute Auto 0.6 K/mm3 (0-0.3); Eosinophils Percent Auto 4.7 % (0-4.4); Hematocrit 44.2 % (37.0-47.0); Hemoglobin 13.9 g/dL (12.0-15.0); Immature Granulocyte Absolute 0.04 K/mm3 (0.00-0.031); Immature Granulocyte Percent A 0.3 % (0-0.5); Lymphocytes Absolute Auto 2.79 K/mm3 (0.9-3.2); Lymphocytes Percent Auto 24.1 % (18.3-44.2); Mean Corpuscular HGB Conc 31.4 g/dl (32-36); Mean Corpuscular Hemoglobin 29.1 pg (26-34); Mean Corpuscular Volume 92.5 fl (80-100); Monocytes Absolute Auto 0.9 K/mm3 (0.1-0.6); Neutrophils Absolute Auto 7.2 K/mm3 (1.3-6.7); Neutrophils Percent Auto 62.2 % (45.5-73.1); Platelet Count Result 267 k/mm3 (150-375); Red Blood Count 4.78 M/mm3 (4.2-5.4); Red Cell Distribution Width 12.8 % (11.5-14.5); White Blood Count 11.6 K/mm3 (4.5-10.0)
[2023-03-10 09:51] LABS: Anion Gap 6 mmol/L (8-16); Blood Urea Nitrogen 15 mg/dL (7-17); Calcium 9.7 mg/dL (8.4-10.2); Carbon Dioxide 32 mmol/L (22-30); Chloride 100 mmol/L (98-107); Estimated Glomerular Filt Rate > 60; Glucose 117 mg/dL (65-110); Potassium 4.2 mmol/L (3.4-5.0); Sodium 138 mmol/L (137-145)
[2023-03-10 09:53] LABS: INR 0.9; Prothrombin Time 12.6 Seconds (11.1-14.7)
[2023-03-10 09:54] LABS: Partial Thromboplastin Time 29.3 SECONDS (22.3-36.8)
== END 2023-03-10 08:51 | disposition home or self-care (01) ==
LOC: ANHSURGERY 08:55
PROVIDERS: PCP Nurse Practitioner Family; Visit Provider Urology
DX: Z01.818 Encounter for other preprocedural examination (principal); R31.9 Hematuria, unspecified
CPT/HCPCS: 36415; 80048; 85025; 85610; 85730; 87086; 87088

== ENCOUNTER 2023-03-16 00:46 | Day surgery (SDC) | payer MEDICARE, BC, SELFPAY ==
[2023-03-04 15:30] VITALS: BMI 42.8
--- NOTE | 2023-03-04 15:37 | PC.NURSE ---
PRE-OP INSTRUCTIONS, PLEASE READ CAREFULLY Report to the Outpatient Waiting Room, entrance under the green pavilion located off [facility], at time _0630_ on date _03/16/23_. Planned Procedure Time: _0830_. Time changes happen often and if your time is changed the preop area will call you the afternoon before. - You and your visitor will be asked to self-screen and do not enter if you have any COVID symptoms. - A mask is optional within the hospital at this time. Patients may have clear liquids (water, carbonated beverages, clear teas, apple juice) until 3 hours prior to surgery (0530 AM) with a maximum of 20 ounces. - No food from midnight until time of surgery Take the following medications with a SIP of water the morning of surgery: _AMLODIPINE, WIXELA INHALER_ DO NOT STOP ANY OF YOUR OTHER PRESCRIPTION MEDICATIONS PRIOR TO SURGERY ?EXCEPT THE FOLLOWING Medications to discontinue per DR. MARTIN - _VITAMINS/SUPPLEMENTS 7 DAYS PRIOR TO SURGERY, Date to take last dose 03/08/23_ (PER PT) Please no make-up, nail south korean, hairspray, perfume, deodorant, or body powder the day of surgery. No jewelry (including any body piercings) or valuables the day of surgery, leave them at home. Please take a shower or bath the night before, or the morning of, surgery with an antibacterial soap. Wear comfortable, loose fitting clothing. - Jewelry must be removed prior to entering the operating room. Rings and piercings that are not removed may be cut off. - The hospital will not accept responsibility for valuables. - Please leave all valuables, including medications, at home the day of surgery. If you are going home after surgery, a licensed flatbed company driver must drive you home. - NO public transportation without another adult if you receive anesthesia. - We recommend that an adult stay with you for 24 hours following discharge. - We also recommend that you do not drive, make important decision, drink alcoholic beverages, or take any drugs that were not prescribed by your health care provider for at least 24 hours after your discharge time. Follow any additional instructions given to you from your surgeon. If you or anyone in your household have experienced Covid symptoms in the past week, please notify your surgeon or the nurse liaison at the phone number below for possible testing. Telephone instructions given to _PATIENT_and asked if any additional questions and then verbalized understanding. Patient advised to call surgeon office or pre surgery nurse liaison [phone] if any additional questions.
[2023-03-16] VITALS (7 sets, daily range): BP systolic 125–158; BP diastolic 71–88; PULSE 74–86; RESP 14–20; TEMP 36.3–37.3; O2SAT 93–100
--- NOTE | 2023-03-16 06:42 | WPDANESEPPF ---
Anes - Initial Pre Proc Eval Procedure: Operation Date: 03/16/23 08:30 Proposed Procedures p Trans Urethral Resection Bladder Tumor - Jose Etienne MD Date/Time: 03/16/23 06:42 Surgeon: Jose Etienne MD Pre Op Diagnosis: Gross Hematuria Patient Data Age: 67 Gender: F Height: 1.68 m Weight: 120.45 kg Allergies Allergy/AdvReac Type Severity Reaction Status Date / Time hydrochlorothiazide AdvReac Intermediate body aches Verified 03/16/23 06:38 Home Medications Medication Instructions Recorded Confirmed Type ascorbic acid (vitamin C) 500 mg 500 mg PO DAILY 05/02/19 03/16/23 History capsule calcium carbonate 600 mg-vitamin 1 tablet PO DAILY 05/02/19 03/16/23 History D3 5 mcg (200 unit) tablet (Calcium 600 + D(3)) cholecalciferol (vitamin D3) 50 2,000 unit PO DAILY 05/02/19 03/16/23 History mcg (2,000 unit) tablet flaxseed oil 1,000 mg capsule 1,000 mg PO DAILY 05/02/19 03/16/23 History zinc 50 mg tablet (Chelated Zinc) 30 mg PO DAILY 05/02/19 03/16/23 History fluticasone 250 mcg-salmeterol 50 See Rx Instructions .Route 04/20/22 03/16/23 Rx mcg/dose blistr powdr for .COMPLEX #180 grams inhalation (Wixela Inhub) valacyclovir 1 gram tablet 2,000 mg PO Q12H PRN fever blister 11/16/22 03/16/23 Rx (Valtrex) #30 tabs amlodipine 5 mg tablet See Rx Instructions .Route 12/17/22 03/16/23 Rx .COMPLEX #90 tabs telmisartan 80 mg tablet 80 mg PO DAILY #90 tabs 12/17/22 03/16/23 Rx metformin 500 mg tablet See Rx Instructions PO .COMPLEX 01/26/23 03/16/23 Rx #360 tabs semaglutide 0.25 mg or 0.5 mg (2 See Rx Instructions .Route 02/26/23 03/16/23 Rx mg/3 mL) subcutaneous pen injector .COMPLEX #9 mL (Ozempic) Patient hx anesthesia problems: none Family hx anesthesia problems: none Results Review: All pre-operative results and documents have been reviewed as part of the pre-operative evaluation. [facility] Past Medical History Medical History DJD of left shoulder Essential hypertension Obesity Pain, joint, shoulder, left Postmenopausal Thumb tendonitis Type 2 diabetes mellitus without complication, without long-term current use of insulin Surgical History Surgical History H/O breast biopsy History of cholecystectomy Status post hemilaminotomy Family History Family History Father Hypertension Mother Hypertension Sibling Endometrial cancer Other Family history of arthritis Family history of malignant neoplasm Social History Social History Smoking packs per day: 0.5 Smoking cigarettes per day: 10.0 Years smoked: 10 Smoking pack-years: 5.00 Smoking status: Former smoker Tobacco type: cigarettes Second hand tobacco smoke exposure: No Smoking end date: 05/03/84 Alcohol intake: never Substance use: never Substance use type: does not use Lack of Transportation: No Lack of Food: Never True Current Housing: I Have Housing Concerned About Future Housing: No Difficulty Paying Gas/Electric Bills: No Difficulty Paying for Meds: No Currently Unemployed: No Difficulty w/ Childcare or Family Care: No Living arrangements: with family Occupation/Education: retired Gender identity (if verbalized by the patient): Female Spiritual care concerns: No Agree to blood products: Yes Anes - Eval Final PreProcedure Day of Procedure 03/16/23 06:42 Patient weight: morbidly obese Heart: regular rate and rhythm Lungs: clear to auscultation Airway: Mallampati scale class II Neurological: alert and oriented Last oral intake: >/= 8 hours ASA classification: III Emergent: no Anesthetic plan: proceed Anesthesia type and monitoring: general LMA and standard monitoring Results Review: All pre-operative result
[2023-03-16] MEDS: LACTATED RINGERS 1,000 ML 30 ML IV CONT ×2 (07:00→11:07)
[2023-03-16 07:09] LABS: Glucose Point of Care 101 mg/dl (65-105)
--- NOTE | 2023-03-16 07:09 | WPDHPUPDATE1 ---
History and Physical Update Update Date/Time: 03/16/23 07:09 History and Physical has been reviewed, including an updated exam of the patient. There are NO changes in the patient's condition. Risks, benefits, and alternatives have been discussed and questions answered. Patient agrees to proceed with procedure. Proceed with transurethral resection of bladder tumor.
[2023-03-16] MEDS: ceFAZolin 3 GM/D5W 100 ML 100 ML IVPB (09:26)
[2023-03-16] MEDS: LIDOCAINE HCL 2% GEL UROJET 10 ML PKG MUCOUS MEM (09:46)
--- NOTE | 2023-03-16 09:50 | W.PM.PROC2 ---
Procedure Note - Detailed Date of Procedure 03/16/23 Pre-op Diagnosis Gross Hematuria Bladder lesion 13 mm Post-op Diagnosis Same Procedure Performed Cysto with transurethral resection of bladder tumor Surgeon Jose Etienne MD Anesthesia General Description of Procedure Patient is taken to the operative suite correctly identified. Once anesthesia was obtained she was placed in dorsal lithotomy position and prepped and draped usual sterile fashion. Twenty-four Marshallese scope inserted the bladder. She has a growth just lateral to the left ureteral orifice. This measures approximately 13-15 mm. This was resected with the base sent as a separate specimen. Hemostasis was achieved using electrocautery. There was good hemostasis at termination of procedure. Bladder was drained. 2% viscous lidocaine was inserted into the urethra patient is taken recovery stable condition. To be discharged home with pain meds antibiotics. Instructed to call for path results in 1 week. This completes dictation. Please send a copy of this to my office Estimated Blood Loss 0 Drains No Packing No Pathology Yes Complications No immediate complications Condition Stable Disposition PACU
[2023-03-16 10:09] LABS: Glucose Point of Care 105 mg/dl (65-105)
== END 2023-03-16 11:26 | disposition home or self-care (01) ==
PROVIDERS: PCP Nurse Practitioner Family; Visit Provider Urology
PROC: 0TBB8ZZ Excision of Bladder, Via Natural or Artificial Opening Endoscopic (ICD-10-PCS; CPT 52234; principal; 2023-03-16 08:30)
DX: C67.8 Malignant neoplasm of overlapping sites of bladder (principal); I10 Essential (primary) hypertension; E11.9 Type 2 diabetes mellitus without complications; E66.01 Morbid (severe) obesity due to excess calories; Z68.41 Body mass index [BMI] 40.0-44.9, adult; Z87.891 Personal history of nicotine dependence; Z79.84 Long term (current) use of oral hypoglycemic drugs; Z79.85 Long-term (current) use of injectable non-insulin antidiabetic drugs
CPT/HCPCS: 52234; 82948; 88305; J0690; J2405; J2704; J3010; J7120

== ENCOUNTER 2023-12-27 09:30 | Outpatient (RCR) | payer MEDICARE, BC, SELFPAY ==
--- NOTE | 2023-12-03 11:50 | OTOPEVAL1 ---
Assessment and note entered by Cb Funes, SHIKHA/Jin, CHT OT Evaluation Information 12/03/23 Diagnosis Trigger finger ICD-10 Condition Codes (OT) M79.642 Subjective Information Patient reports noticing symptoms about 3 months ago in the left index finger. She reports first thing in the morning the finger has difficulty bending and when she does bend it, it gets stuck. She states that when she is moving and active throughout the day she doesn't notice any triggering. Notes it more during periods of immobility when it triggers. She reports no pain at rest. 5/10 pain with triggering. She is right handed. Reported Pain Level Pain Score 0/10 at rest Assessment OT Clinical Summary Patient referred to OT with dx of trigger finger of her left index finger. She presents with tightness and triggering, particularly with a flat fist and composite finger flexion. Issued passive ROM HEP, gentle tendon glide HEP, and a PIP immobilization splint to facilitate reduced inflammation and improved functional flexibility. Continued follow up indicated for use of modalities, manual therapy, therapeutic exercise, and HEP progression as tolerated to facilitate reduced pain, improved ROM, and return to functional use for ADLs without triggering. Plan of Care Interventions Therapeutic Exercise,Manual Therapy,Therapeutic Activities,Hot Pack/Cold Pack,Ultrasound,Paraffin OT Services Indicated Yes Treatment Frequency and 1x/week for 5 visits Duration These treatments will address the objective and functional deficits as defined above. The patient will be advanced safely and appropriately in order for the patient to progress towards his/her prior level of function. Additional exercises will be introduced and as well as a comprehensive home exercise program upon discharge, if needed, ?to ensure carryover of functional gains achieved in the clinic. This treatment plan has been reviewed and agreement upon by the patient.
--- NOTE | 2023-12-03 11:54 | OPREHPOC ---
Outpatient Therapy Plan of Care This is a Multidisciplinary Plan of Care that may contain components documented by all disciplines (PT, OT, and ST.) OT Problem 1 OT Problem #1 Knowledge Deficit OT Goal 1 Goal 1. Patient to be independent with instructed materials. 2. Patient to adhere to splint wearing schedule. Target Visit 5 OT Problem 2 OT Problem #2 Impaired Range of Motion OT Goal 1 Goal 1. Patient to be able to make a composite fist, flat fist, and hook fist without evidence of triggering in the left index finger. Target Visit 5 OT Problem 3 OT Problem #3 Impaired Strength OT Goal 1 Goal 1. Patient to be able to progress to tight barrel inspector/pinch strengthening with yellow putty x5 minutes without pain or triggering. Target Visit 5
--- NOTE | 2023-12-27 10:46 | OTOPPROG ---
Assessment and note entered by Cb Funes, SHIKHA/Jin, CHT OT Progress Update 12/27/23 Diagnosis Trigger finger Subjective Information Patient reports very minimal changes in the finger . Maybe even worse than prior to coming to therapy . She reports continued catching and pain in the index finger. She continues to report no pain at rest and 5/10 pain with triggering. She reports she feels as though her triggering is worse when she wears the finger immobilizer. She does like ice on the finger and she feels as though this is helpful. Assessment OT Clinical Summary Patient referred to OT with dx of trigger finger of her left index finger. Assessment today shows patient has worse triggering than at the initial evaluation. She presents with continued tightness and triggering, particularly with a flat fist and composite finger flexion. She reports she is going to call Dr. Bravo's office to schedule an injection. Continued therapy following an injection is indicated for continued use of modalities, manual therapy, therapeutic exercise, and HEP progression as tolerated to facilitate reduced pain, improved ROM, and return to functional use for ADLs without triggering. Plan of Care Interventions Therapeutic Exercise,Manual Therapy,Therapeutic Activities,Hot Pack/Cold Pack,Ultrasound,Paraffin OT Services Indicated Yes Treatment Frequency and 1x/week for 5 visits Duration These treatments will address the objective and functional deficits as defined above. The patient will be advanced safely and appropriately in order for the patient to progress towards his/her prior level of function. Additional exercises will be introduced and as well as a comprehensive home exercise program upon discharge, if needed, ?to ensure carryover of functional gains achieved in the clinic. This treatment plan has been reviewed and agreement upon by the patient.
--- NOTE | 2023-12-27 10:46 | OPREHPOC ---
Outpatient Therapy Plan of Care This is a Multidisciplinary Plan of Care that may contain components documented by all disciplines (PT, OT, and ST.) OT Problem 1 OT Problem #1 Knowledge Deficit OT Goal 1 Goal / Goal Update 1. Patient to be independent with instructed materials. 2. Patient to adhere to splint wearing schedule. ---OT POC UPDATE 12/27/23--- 1. Met 2. Met, splint doesn't seem to be helping, rather more hindering her progress, discontinuing splint Target Visit 10 OT Problem 2 OT Problem #2 Impaired Range of Motion OT Goal 1 Goal / Goal Update 1. Patient to be able to make a composite fist, flat fist, and hook fist without evidence of triggering in the left index finger. ---OT POC UPDATE 12/27/23--- 1. Not met, continue goal Target Visit 10 OT Problem 3 OT Problem #3 Impaired Strength OT Goal 1 Goal / Goal Update 1. Patient to be able to progress to process validation engineer/pinch strengthening with yellow putty x5 minutes without pain or triggering. ---OT POC UPDATE 12/27/23--- 1. Not met, continue goal Target Visit 10
== END 2024-03-02 23:59 | disposition home or self-care (01) ==
LOC: ANHOT 09:30
PROVIDERS: PCP Nurse Practitioner Family; Visit Provider Physician Assistant Surgical
DX: M65.322 Trigger finger, left index finger (principal)
CPT/HCPCS: 97018; 97035; 97110; 97140; 97165; L3933

== ENCOUNTER 2024-02-15 09:08 | Emergency (ER) | payer MEDICARE, BC, SELFPAY ==
--- NOTE | ~2024-02-15 | XR_ITS ---
EXAMINATION: XR hip RT min 2V DATE: 02/15/2024 10:01 INDICATION: Acute onset nontraumatic right hip pain TECHNIQUE: Anteroposterior and frog-leg lateral views of the right hip were obtained. COMPARISON: CT dated 02/02/2023 FINDINGS: 1 alignment is normal. No fracture or suspected osteonecrosis. Mild osteoarthritis at the right hip. Enthesophytes at multiple sites of tendinous insertion including an anterior iliac spines, ischial tu berosity and greater trochanter. IMPRESSION: 1. Mild right hip osteoarthritis. No acute osseous abnormality. Reviewed, dictated and finalized at location A.
--- NOTE | ~2024-02-15 | CT_ITS ---
Procedure: CT hip RT wo con Ordering provider: Betty Canales APRN History: . pt unable to bear weight on R hip . Comparison: None. Technique: Thin slice axial CT of the No IV contrast was given. Sagittal and coronal reformatted imag es were also obtained and reviewed. Findings: BONES: No evidence of fractures seen. JOINT SPACES: Mild to moderate right hip osteoarthritic changes. Right sacroiliitis. SOFT TISSUES: Normal. IMPRESSION: No evidence of fractures seen in the right hip. Reviewed, dictated and finalized at location A.
[2024-02-15 09:11] VITALS: BP 190/88; PULSE 84; RESP 14; TEMP 36.6; O2SAT 100
[2024-02-15] MEDS: CYCLOBENZAPRINE HCL 5 MG TABLET PO (09:49)
[2024-02-15] MEDS: HYDROcodone/acetaminophen (*CRX) 5-325 MG TABLET 1 TAB PO (09:49)
--- NOTE | 2024-02-15 09:51 | ED.GENADULT ---
HPI - General Adult General Chief complaint: Unspecified Stated complaint: R hip pain Time Seen by Provider: 02/15/24 09:19 History of Present Illness HPI narrative: Patient is a 68-year-old female who presents to the ER with right-sided hip pain. She reports it started about a week ago. Patient has been taking Tylenol to help reduce pain but yesterday she was unable to move. She reports she finally got herself to her bed but had difficulty sleeping due to the pain. Patient reports pain is worse with standing and walking. She reports she has a history of arthritis and had back surgery 1 year ago, but has never had problems with her right hip. Patient reports she has a history of pre diabetes and takes Monjauro. She also has a history hypertension, asthma, cholecystectomy, appendectomy. Patient denies other signs symptoms of recent illness, chest pain, shortness of breath, or recent injury. Related Data Home Medications Medication Instructions Recorded Confirmed ascorbic acid (vitamin C) 500 mg 500 mg PO DAILY 05/02/19 11/17/23 capsule calcium 600 mg (as 1 tablet PO DAILY 05/02/19 11/17/23 carbonate)-vitamin D3 5 mcg (200 unit) tablet (Calcium 600 + D(3)) cholecalciferol (vitamin D3) 50 2,000 unit PO DAILY 05/02/19 11/17/23 mcg (2,000 unit) tablet flaxseed oil 1,000 mg capsule 1,000 mg PO DAILY 05/02/19 11/17/23 zinc 50 mg tablet (Chelated Zinc) 30 mg PO DAILY 05/02/19 11/17/23 Allergies Allergy/AdvReac Type Severity Reaction Status Date / Time hydrochlorothiazide AdvReac Intermediate body aches Verified 02/15/24 09:13 Review of Systems Review of Systems: All systems reviewed & are unremarkable except as noted in HPI and below PMFSH Past Medical History Medical History DJD of left shoulder Essential hypertension Pain, joint, shoulder, left Postmenopausal Thumb tendonitis Type 2 diabetes mellitus without complication, without long-term current use of insulin Surgical History Surgical History Status post hemilaminotomy Family History Family History Father Hypertension Mother Hypertension Sibling Endometrial cancer Other Family history of arthritis Family history of malignant neoplasm Social History Social History Smoking packs per day: 0.5 Smoking cigarettes per day: 10.0 Years smoked: 10 Smoking pack-years: 5.00 Smoking status: Former smoker Tobacco type: cigarettes Second hand tobacco smoke exposure: No Smoking end date: 05/03/84 Alcohol intake: never Substance use: never Substance use type: does not use Lack of Transportation: No Lack of Food: Never True Current Housing: I Have Housing Concerned About Future Housing: No Difficulty Paying Gas/Electric Bills: No Difficulty Paying for Meds: No Currently Unemployed: No Difficulty w/ Childcare or Family Care: No Living arrangements: with family Occupation/Education: retired Gender identity (if verbalized by the patient): Female Spiritual care concerns: No Agree to blood products: Yes Exam Narrative: GENERAL: Well appearing, obese, non-toxic, in no acute distress. HEAD: Normocephalic, atraumatic. NECK: Supple. No adenopathy, no masses. RESPIRATORY: Airway patent, respirations nonlabored. Clear to auscultation bilaterally, no rales, rhonchi, wheezing. CARDIOVASCULAR: Regular rate and rhythm without murmurs, rubs, or gallops. Peripheral pulses 2+ and equal bilaterally. ABDOMINAL: Soft, nontender, nondistended, no hepatosplenomegaly. Normoactive BS. MUSCULOSKELETAL: Moves all extremities. Strength/ROM intact without gross deformities. Increased pain with abduction, adduction, internal and external rotation, worsened pain with flexion. No increased
[2024-02-15 12:00] VITALS: BP 163/77; PULSE 73; RESP 18; O2SAT 95
[2024-02-15 12:44] VITALS: BP 160/79; PULSE 76; RESP 20; O2SAT 96
== END 2024-02-15 12:45 | disposition home or self-care (01) ==
PROVIDERS: Emergency Provider Registered Nurse; PCP Nurse Practitioner Family
DX: M25.551 Pain in right hip (principal); M16.11 Unilateral primary osteoarthritis, right hip; I10 Essential (primary) hypertension; E11.9 Type 2 diabetes mellitus without complications
CPT/HCPCS: 73502; 73700; 99284; A9270